=== PATIENT | male | born 1975 | race Caucasian/White ===

== ENCOUNTER 2017-02-07 19:43 | Emergency (ER) | payer MEDICAID ==
[~2017-02-07] VITALS: Ht 180.3 cm; Wt 86.4 kg
[2017-02-07 19:55] VITALS: BP 148/84
== END 2017-02-07 22:27 | disposition left against medical advice (07) ==
LOC: EMS 19:45
DX: Z53.21 Procedure and treatment not carried out due to patient leaving prior to being seen by health care provider (principal)